=== PATIENT | female | born 1950 | race Caucasian/White ===

== ENCOUNTER 2016-09-19 23:38 | Emergency (ER) | payer MEDICAID ==
[~2016-09-19] VITALS: Ht 154.9 cm; Wt 53.5 kg
[2016-09-20 00:06] VITALS: BP 142/74
--- NOTE | 2016-09-20 00:46 | NUR ---
PT TAKEN TO BED 5
--- NOTE | 2016-09-20 00:50 | NUR ---
65 Y/O F W/C/O ABD PAIN, DISTENTION , CONSTIPATION AND NAUSEA X 1 DAY. PER PT SHE WAS DIAGNOSED WITH DIVERTICULATIS AND HPYLORY BY PMD. DENIES ANY FEVER OR SOB. ER MD MADE AWARE.
--- NOTE | 2016-09-20 00:56 | NUR ---
Dr. Menezes evaluating patient at bedside.
--- NOTE | 2016-09-20 01:11 | NUR ---
PT TAKEN TO CT
--- NOTE | 2016-09-20 01:21 | NUR ---
PT RETURN FROM CT
[2016-09-20 01:45] LABS: APPEARANCE,URINE CLOUDY (CLEAR); BILIRUBIN,URINE NEGATIVE (NEGATIVE); BLOOD, URINE NEGATIVE (NEGATIVE); COLOR,URINE YELLOW (YELLOW); LEUKOCYTE ESTERASE ,URINE NEGATIVE (NEGATIVE); NITRITE, URINE NEGATIVE (NEGATIVE); PH,URINE 8.5 (5.0-9.0); PROTEIN,URINE NEGATIVE (NEGATIVE); UGLUCOSE NEGATIVE (NEGATIVE); UROBILINOGEN,URINE 0.2 EU/dL (0.2 - 1)
[2016-09-20 01:55] LABS: BASOPHILS # (AUTO) 0.2 K/uL (0.00-0.22); BASOPHILS % (AUTO) 1.8 % (0.0-2.0); EOSINOPHILS # (AUTO) 0.2 K/uL (0-0.4); EOSINOPHILS % (AUTO) 2.9 % (0.0-4.0); HEMATOCRIT 39.3 % (36-48); HEMOGLOBIN 12.8 g/dL (12.0-16.0); LYMPHOCYTES # (AUTO) 3.4 K/uL (2.5-16.5); LYMPHOCYTES % (AUTO) 40.2 % (20.5-51.1); MEAN CORPUSCULAR HEMOGLOBIN 28 pg (27-31); MEAN CORPUSCULAR HGB CONC 33 g/dL (33-37); MEAN CORPUSCULAR VOLUME 86 fL (80-94); MONOCYTES # (AUTO) 0.6 K/uL (0.8-1.0); MONOCYTES % (AUTO) 6.6 % (1.7-9.3); NEUTROPHILS # (AUTO) 4.1 K/uL (1.8-7.7); NEUTROPHILS % (AUTO) 48.5 % (42.2-75.2); PLATELET COUNT (AUTO) 230 K/uL (140-450); RED BLOOD CELL COUNT(AUTO) 4.56 MIL/uL (4.20-5.40); RED CELL DISTRIBUTION WIDTH 12.7 % (11.6-13.7); WHITE BLOOD COUNT (AUTO) 8.5 K/uL (4.8-10.8)
[2016-09-20] MEDS ORDERED: ONDANSETRON 4 MG TAB PO ONE (01:55)
[2016-09-20] MEDS ORDERED: traMADol 50 MG TAB PO ONE (01:55)
[2016-09-20 01:56] LABS: BACTERIA,URINE 1+ /HPF (None Seen); RBC,URINE 0-5 (RARE) /HPF (0-5); SQUAMOUS EPITHELIAL CELL,UR 4-10 (MOD) /LPF (0-3 (FEW)); WBC,URINE 0-5 (RARE) /HPF (0-5)
[2016-09-20 01:57] LABS: URINE AMORPHOUS PHOSPHATES 1+ /HPF (None Seen)
[2016-09-20 02:05] LABS: ANION GAP 9.3 (8-16); CALCIUM 8.9 mg/dL (8.5-10.1); CARBON DIOXIDE 30.9 mmol/L (21-32); CREATININE 0.7 mg/dL (0.6-1.3); POTASSIUM 4.2 mmol/L (3.5-5.1)
[2016-09-20 02:11] LABS: TOTAL BILIRUBIN 0.3 mg/dL (0.0-1.0); TOTAL PROTEIN, SERUM 7.3 g/dL (6.4-8.2)
[2016-09-20 02:23] VITALS: BP 143/63
--- NOTE | 2016-09-20 02:23 | NUR ---
Patient discharged with v/s stable. Written and verbal after care instructions given and explained. Patient verbalized understanding. Ambulatory with . All questions addressed prior to discharge. Advised to follow up with PMD. COPIES OF LABS AND CT WITH PT.
== END 2016-09-20 02:23 | disposition home or self-care (01) ==
LOC: MED 23:38
DX: B96.81 Helicobacter pylori [H. pylori] as the cause of diseases classified elsewhere (principal); Z88.5 Allergy status to narcotic agent
CPT/HCPCS: 36415; 74176; 80053; 81001; 85025; 87086; 99285; Q0162

== ENCOUNTER 2016-11-03 20:10 | Emergency (ER) | payer MEDICAID ==
[~2016-11-03] VITALS: Ht 157.5 cm; Wt 59.0 kg
[2016-11-03 20:19] VITALS: BP 140/90
--- NOTE | 2016-11-03 20:53 | NUR ---
PT AMBULATED TO BED 05.
--- NOTE | 2016-11-03 20:55 | NUR ---
65 Y/O F W/C/O L UPPER ABD PAIN, NAUSEA AND CONSTIPATION X 8 DAYS. DENIES ANY VOMITING, OR FEVER. PT REFUSES ANY MEDICATIONS FOR PAIN. ER MD NOTIFIED.
[2016-11-03] MEDS ORDERED: ONDANSETRON 4 MG/2 ML VIAL IVP ONE (21:15)
[2016-11-03] MEDS ORDERED: KETOROLAC 30 MG/ML VIAL IVP ONE (21:15)
--- NOTE | 2016-11-04 00:17 | NUR ---
Patient stable, ER MD NOTIFIED OF BP OF 155/85. PT STATES HAS A HX OF HTN, AND DIDNT TAKE HER PILL TODAY. DENIES ANY CHEST PAIN. NO S/S OF DISTRESS NOTED AT THE MOMENT. Written and verbal after care instructions given and explained. Patient alert, oriented and verbalized understanding of instructions. Ambulatory with steady gait. All questions addressed prior to discharge. ID band removed. Patient advised to follow up with PMD OR RETURN TO ER IF CONDITION WORSENS. Rx of OMEPRAZOLE given. Patient educated on indication of medication including possible reaction and side effects. Opportunity to ask questions provided and answered.
[2016-11-04 00:19] VITALS: BP 155/85
== END 2016-11-04 00:17 | disposition home or self-care (01) ==
LOC: MED 20:10
DX: K29.70 Gastritis, unspecified, without bleeding (principal); I10 Essential (primary) hypertension; Z90.49 Acquired absence of other specified parts of digestive tract; Z90.89 Acquired absence of other organs; Z90.710 Acquired absence of both cervix and uterus; Z88.5 Allergy status to narcotic agent
CPT/HCPCS: 36415; 80053; 81001; 81025; 82150; 83690; 84484; 84703; 85025; 93005; 96374; 96375; 99285; J1885; J2405

== ENCOUNTER 2018-12-21 22:08 | Emergency (ER) | payer MEDICAID ==
[~2018-12-21] VITALS: Ht 154.9 cm; Wt 54.5 kg
[~2018-12-21 22:08] MED LIST: CLON2TAB PO
[2018-12-21 22:15] VITALS: BP 166/86
--- NOTE | 2018-12-21 22:17 | NUR ---
PATIENT AMBULATED TO ER BED 4.
--- NOTE | 2018-12-21 22:31 | NUR ---
68 Y/O F PRESNTED TO ED WITH C/O FACIAL PAIN AND ITCHING. SYMPTOMS STARTED YESTERDAY. ORBITAL EDEMA NOTED TO L FACE. 7/10 PAIN, BURNING SENSATION. NO CHANGES IN SOAP OR FACIAL REGIMEN. DENIES OUTSDIDE TRAVEL. PT SELF MEDICATED WITH CLARITIN, NO RELIEF. FAMILY AT BEDSIDE. WILL CONTINUE TO MONITOR.
--- NOTE | 2018-12-21 23:15 | NUR ---
Dr. Cervantes examining patient.
[2018-12-21 23:28] VITALS: BP 152/81
--- NOTE | 2018-12-21 23:28 | NUR ---
Patient discharged with v/s stable. Written and verbal after care instructions given and explained. Patient alert, oriented and verbalized understanding of instructions. Ambulatory with steady gait. All questions addressed prior to discharge. ID band removed. Patient advised to follow up with PMD. Rx of PREDNISONE 50MG, DIPHENHYDRAMINE 25MG, TOBRAMYCIN 0.3% OPTH SOLN given. Patient educated on indication of medication including possible reaction and side effects. Opportunity to ask questions provided and answered.
== END 2018-12-21 23:28 | disposition home or self-care (01) ==
LOC: MED 22:08
DX: T78.40XA Allergy, unspecified, initial encounter (principal); I10 Essential (primary) hypertension; Z90.49 Acquired absence of other specified parts of digestive tract; Z90.89 Acquired absence of other organs; Z88.5 Allergy status to narcotic agent; Z88.8 Allergy status to other drugs, medicaments and biological substances; Z87.19 Personal history of other diseases of the digestive system; Z79.899 Other long term (current) drug therapy; X58.XXXA Exposure to other specified factors, initial encounter
CPT/HCPCS: 99283

== ENCOUNTER 2019-02-08 13:35 | Emergency (ER) | payer MEDICAID ==
[~2019-02-08] VITALS: Ht 160 cm; Wt 53.6 kg
[2019-02-08 13:44] VITALS: BP 121/72
[2019-02-08] MEDS ORDERED: LORATADINE 10 MG TAB PO ONE (14:55)
[2019-02-08] MEDS ORDERED: FAMOTIDINE 20 MG TAB PO ONE (14:55)
[2019-02-08 16:10] VITALS: BP 136/66
== END 2019-02-08 16:10 | disposition home or self-care (01) ==
LOC: MED 13:35
DX: T78.40XA Allergy, unspecified, initial encounter (principal); M54.9 Dorsalgia, unspecified; R51 Headache; H57.13 Ocular pain, bilateral; R05 Cough; R11.0 Nausea; I10 Essential (primary) hypertension; Z88.5 Allergy status to narcotic agent; Z88.8 Allergy status to other drugs, medicaments and biological substances; Z79.899 Other long term (current) drug therapy; X58.XXXA Exposure to other specified factors, initial encounter
CPT/HCPCS: 72100; 99283

== ENCOUNTER 2021-01-14 19:28 | Emergency (ER) | payer MEDICAID ==
[~2021-01-14] VITALS: Ht 149.9 cm; Wt 54.4 kg
[2021-01-14 19:33] VITALS: BP 138/86
--- NOTE | 2021-01-14 19:35 | NUR ---
TO LOBBY A/W BED AMBULATORY
[2021-01-14 20:23] LABS: BASOPHILS # (AUTO) 0.1 K/uL (0.00-0.22); EOSINOPHILS # (AUTO) 0.3 K/uL (0-0.4); EOSINOPHILS % (AUTO) 3.3 % (0.0-4.0); HEMATOCRIT 40.5 % (36-48); HEMOGLOBIN 13.2 g/dL (12.0-16.0); LYMPHOCYTES # (AUTO) 2.8 K/uL (2.5-16.5); LYMPHOCYTES % (AUTO) 35.6 % (20.5-51.1); MEAN CORPUSCULAR HEMOGLOBIN 28 pg (27-31); MEAN CORPUSCULAR HGB CONC 33 g/dL (33-37); MEAN CORPUSCULAR VOLUME 87.3 fL (80-94); MONOCYTES # (AUTO) 0.5 K/uL (0.8-1.0); MONOCYTES % (AUTO) 6.4 % (1.7-9.3); NEUTROPHILS # (AUTO) 4.2 K/uL (1.8-7.7); NEUTROPHILS % (AUTO) 53.7 % (42.2-75.2); PLATELET COUNT (AUTO) 239 K/uL (140-450); RED BLOOD CELL COUNT(AUTO) 4.64 MIL/uL (4.20-5.40); RED CELL DISTRIBUTION WIDTH 13.7 % (11.6-13.7); WHITE BLOOD COUNT (AUTO) 7.9 K/uL (4.8-10.8)
[2021-01-14 20:53] LABS: ALBUMIN 4.1 g/dL (3.4-5.0); ANION GAP 9.1 (8-16); CARBON DIOXIDE 31.6 mmol/L (21-32); POTASSIUM 4.7 mmol/L (3.5-5.1); TOTAL BILIRUBIN 0.3 mg/dL (0.0-1.0)
[2021-01-14] MEDS ORDERED: CEPH500C16 PO (23:05)
[2021-01-14 23:45] VITALS: BP 138/86
== END 2021-01-14 23:45 | disposition home or self-care (01) ==
LOC: MED 19:28
DX: N12 Tubulo-interstitial nephritis, not specified as acute or chronic (principal); G89.29 Other chronic pain; R10.9 Unspecified abdominal pain; I10 Essential (primary) hypertension; Z88.5 Allergy status to narcotic agent; Z88.8 Allergy status to other drugs, medicaments and biological substances
CPT/HCPCS: 36415; 80053; 81002; 81025; 83690; 85025; 99283

== ENCOUNTER 2024-02-22 20:48 | Emergency (ER) | payer MEDICAID ==
[~2024-02-22] VITALS: Ht 162.6 cm; Wt 49.9 kg
[~2024-02-22 20:48] MED LIST changes: +CEPH500C16 PO; +CLON-575 PO; -CLON2TAB PO
[2024-02-22 21:07] VITALS: BP 186/87; PULSE 73; RESP 18; TEMP 97.5; O2SAT 98
[2024-02-22 22:27] LABS: BASOPHILS % (AUTO) 0.5 % (0.0-2.0); EOSINOPHILS # (AUTO) 0.1 K/uL (0-0.4); EOSINOPHILS % (AUTO) 1.5 % (0.0-4.0); HEMATOCRIT 39.6 % (36-48); LYMPHOCYTES # (AUTO) 2.5 K/uL (2.5-16.5); LYMPHOCYTES % (AUTO) 28.7 % (20.5-51.1); MEAN CORPUSCULAR HEMOGLOBIN 28 pg (27-31); MEAN CORPUSCULAR HGB CONC 33 g/dL (33-37); MEAN CORPUSCULAR VOLUME 85.1 fL (80-94); MONOCYTES # (AUTO) 0.5 K/uL (0.8-1.0); MONOCYTES % (AUTO) 6.3 % (1.7-9.3); NEUTROPHILS # (AUTO) 5.4 K/uL (1.8-7.7); PLATELET COUNT (AUTO) 226 K/uL (140-450); RED BLOOD CELL COUNT(AUTO) 4.65 MIL/uL (4.20-5.40); RED CELL DISTRIBUTION WIDTH 14.9 % (11.6-13.7); WHITE BLOOD COUNT (AUTO) 8.6 K/uL (4.8-10.8)
[2024-02-22 22:37] LABS: APPEARANCE,URINE CLEAR (CLEAR); BILIRUBIN,URINE NEGATIVE (NEGATIVE); BLOOD, URINE NEGATIVE (NEGATIVE); COLOR,URINE YELLOW (YELLOW); LEUKOCYTE ESTERASE ,URINE TRACE (NEGATIVE); NITRITE, URINE NEGATIVE (NEGATIVE); PROTEIN,URINE NEGATIVE (NEGATIVE); UGLUCOSE NEGATIVE (NEGATIVE); UROBILINOGEN,URINE 0.2 EU/dL (0.2 - 1)
[2024-02-22 22:39] LABS: BACTERIA,URINE 10-30 (MOD) /HPF (None Seen); MUCUS,URINE 1+ /LPF (None Seen); RBC,URINE 0-5 /HPF (0-5); SQUAMOUS EPITHELIAL CELL,UR 0-3 (FEW) /LPF (0-3 (FEW))
[2024-02-22 22:55] LABS: CALCIUM 9.3 mg/dL (8.5-10.1); CARBON DIOXIDE 30.1 mmol/L (21-32); CHLORIDE 103 mmol/L (98-107); CREATININE 0.6 mg/dL (0.6-1.3); GLUCOSE 87 mg/dL (74-106); POTASSIUM 4.1 mmol/L (3.5-5.1); SODIUM SERUM 141 mmol/L (136-145); UREA NITROGEN, BLOOD 18 mg/dL (7-18)
[2024-02-22 23:05] LABS: ALBUMIN 4.1 g/dL (3.4-5.0); BILIRUBIN,DIRECT 0.1 mg/dL (0.0-0.3); TOTAL BILIRUBIN 0.3 mg/dL (0.0-1.0); TOTAL PROTEIN, SERUM 7.8 g/dL (6.4-8.2)
[2024-02-23] MEDS ORDERED: CEPH-588 PO (01:26)
[2024-02-23 01:39] VITALS: BP 186/87; PULSE 73; RESP 18; TEMP 97.5; O2SAT 98
== END 2024-02-23 01:39 | disposition home or self-care (01) ==
LOC: MED 20:48
DX: N39.0 Urinary tract infection, site not specified (principal); K59.00 Constipation, unspecified; N28.1 Cyst of kidney, acquired; I10 Essential (primary) hypertension; Z98.890 Other specified postprocedural states; Z79.899 Other long term (current) drug therapy; Z88.5 Allergy status to narcotic agent; Z88.8 Allergy status to other drugs, medicaments and biological substances
CPT/HCPCS: 36415; 74177; 80048; 80076; 81001; 83690; 85025; 87086; 99285; Q9967